=== PATIENT | male | born 1990 | race Caucasian/White ===

== ENCOUNTER 2016-12-22 07:27 | Emergency (ER) | payer OTHER ==
[~2016-12-22] VITALS: Ht 180.3 cm; Wt 74.8 kg
[2016-12-22 07:44] VITALS: BP 108/81
[2016-12-22] MEDS ORDERED: LIDOCAINE 1% HCL (LOCAL ANESTH.) INJ 20ML MDV ONE (08:29)
[2016-12-22] MEDS ORDERED: BACITRACIN TOP OINT 1 UD PKG TOP ONE (08:30)
[2016-12-22] MEDS ORDERED: cefTRIAXone SOD 1,000 MG VL IM ONE (08:30)
[2016-12-22] MEDS ORDERED: TETANUS-DIPTH-ACEL PERTUSSIS 0.5ML SYRG IM ONE (08:30)
[2016-12-22] MEDS ORDERED: LIDOCAINE 1% HCL (LOCAL ANESTH.) INJ 20ML MDV IJ ONE (08:45)
== END 2016-12-22 08:54 | disposition home or self-care (01) ==
LOC: ER 07:27
DX: S60.811A Abrasion of right wrist, initial encounter (principal); B99.9 Unspecified infectious disease; W18.39XA Other fall on same level, initial encounter; Y93.89 Activity, other specified; Y92.89 Other specified places as the place of occurrence of the external cause; Y99.8 Other external cause status
CPT/HCPCS: 73130; 96372; 99284; J0696; J2001; 90715

== ENCOUNTER 2018-01-04 17:34 | Emergency (ER) | payer OTHER ==
[~2018-01-04] VITALS: Ht 180.3 cm; Wt 78.5 kg
[2018-01-04 18:11] VITALS: BP 119/79
== END 2018-01-04 18:37 | disposition home or self-care (01) ==
LOC: ER 17:34
DX: S63.501A Unspecified sprain of right wrist, initial encounter (principal); X50.1XXA Overexertion from prolonged static or awkward postures, initial encounter; Y93.89 Activity, other specified; Y92.89 Other specified places as the place of occurrence of the external cause; Y99.8 Other external cause status
CPT/HCPCS: 73110